=== PATIENT | female | born 1995 | race Two or more races ===

== ENCOUNTER 2021-07-05 09:05 | Outpatient (CLI) | payer OTHER ==
[2021-07-05 09:38] LABS: APPEARANCE,URINE CLEAR (CLEAR); BILIRUBIN,URINE NEGATIVE (NEGATIVE); BLOOD, URINE NEGATIVE (NEGATIVE); COLOR,URINE YELLOW (YELLOW); LEUKOCYTE ESTERASE ,URINE NEGATIVE (NEGATIVE); NITRITE, URINE NEGATIVE (NEGATIVE); UGLUCOSE NEGATIVE (NEGATIVE)
[2021-07-05 10:08] LABS: CHOL/HDL RATIO 3.5 (1-4.5)
== END 2021-07-05 20:20 | disposition home or self-care (01) ==
LOC: MLB 09:05
PROVIDERS: ATTEND Obstetrics & Gynecology
DX: Z13.220 Encounter for screening for lipoid disorders (principal); N20.0 Calculus of kidney
CPT/HCPCS: 36415; 81003; 87086

== ENCOUNTER 2021-12-06 17:29 | Emergency (ER) | payer OTHER ==
[~2021-12-06] VITALS: Ht 160 cm; Wt 77.2 kg
[2021-12-06 18:00] VITALS: BP 108/74
--- NOTE | 2021-12-06 18:58 | NUR ---
Pt ambulated to bed 12 steady/even gait.
--- NOTE | 2021-12-06 19:05 | NUR ---
Dr. Mercer evaluating pt at bedside
--- NOTE | 2021-12-06 19:10 | NUR ---
26 y/o F BIB self from home c/o vaginal spotting x 1 week. Pt 9 wks states "pinkish" vaginal spotting x 1 week without clots; saturating 2-3 pads/day. States intermittent abd cramping across low abd; 4/10, cramping/intermittent, non-radiating pain. Last OB appointment 11/09/[address] Gan; completed U.S showing 5 wks 4 days. Denies nausea, vomiting, diarrhea, dysuria, urinary symptoms. Denies OTC meds today. LMP: 11/20. PMH: kidney stones Meds: prenatals NKDA Sx: denies
--- NOTE | 2021-12-06 19:15 | NUR ---
ASSUME CARE OF PT, REPORT GIVEN BY KRISTOFER RN, PT C/O VAGINAL BLEEDING, SATURATING A FEW PADS A DAY. PT DENIES CP OR SOB. 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 DENIES ABD PAIN. G1PO.
--- NOTE | 2021-12-06 19:23 | NUR ---
Report and transfer of care endorsed to MAIDA Brandt.
[2021-12-06 19:42] LABS: BASOPHILS % (AUTO) 0.5 % (0.0-2.0); EOSINOPHILS # (AUTO) 0.3 K/uL (0-0.4); HEMOGLOBIN 12.7 g/dL (12.0-16.0); MEAN CORPUSCULAR HEMOGLOBIN 30 pg (27-31); MEAN CORPUSCULAR HGB CONC 34 g/dL (33-37); MONOCYTES # (AUTO) 0.7 K/uL (0.8-1.0); MONOCYTES % (AUTO) 8.4 % (1.7-9.3); NEUTROPHILS # (AUTO) 4.7 K/uL (1.8-7.7); NEUTROPHILS % (AUTO) 54.1 % (42.2-75.2); PLATELET COUNT (AUTO) 309 K/uL (140-450); RED CELL DISTRIBUTION WIDTH 13.1 % (11.6-13.7); WHITE BLOOD COUNT (AUTO) 8.7 K/uL (4.8-10.8)
[2021-12-06 20:00] LABS: APPEARANCE,URINE CLEAR (CLEAR); BILIRUBIN,URINE NEGATIVE (NEGATIVE); BLOOD, URINE TRACE-I (NEGATIVE); COLOR,URINE YELLOW (YELLOW); LEUKOCYTE ESTERASE ,URINE NEGATIVE (NEGATIVE); NITRITE, URINE NEGATIVE (NEGATIVE); UGLUCOSE NEGATIVE (NEGATIVE)
[2021-12-06 20:12] LABS: OTHER CASTS, URINE None Seen /LPF (None Seen); RBC,URINE 0-5 /HPF (0-5); WBC,URINE 0-5 /HPF (0-5)
[2021-12-06 20:55] VITALS: BP 110/70
--- NOTE | 2021-12-06 20:55 | NUR ---
Patient discharged with v/s stable. Written and verbal after care instructions given and explained. Patient verbalized understanding. Ambulatory with steady gait. All questions addressed prior to discharge. Advised to follow up with PMD.
== END 2021-12-06 20:55 | disposition home or self-care (01) ==
LOC: MED 17:29
DX: O20.0 Threatened abortion (principal); Z3A.09 9 weeks gestation of pregnancy
CPT/HCPCS: 36415; 76817; 81001; 81025; 84702; 85025; 86900; 86901; 99284; Q0092

== ENCOUNTER 2021-12-09 08:34 | Emergency (ER) | payer OTHER ==
[~2021-12-09] VITALS: Ht 160 cm; Wt 77.2 kg
--- NOTE | 2021-12-09 08:57 | NUR ---
Patient ambulated with steady gait to bed 10.
--- NOTE | 2021-12-09 09:00 | NUR ---
received in [facility] for repeat labs. was here yesterday for vaginal spotting. reports 9 week. . denies dizziness,n,v,fever. aao x4. resp even and nonlabored. vss
[2021-12-09 09:02] VITALS: BP 112/73
[2021-12-09 10:17] LABS: BASOPHILS # (AUTO) 0.1 K/uL (0.00-0.22); BASOPHILS % (AUTO) 0.8 % (0.0-2.0); EOSINOPHILS # (AUTO) 0.2 K/uL (0-0.4); EOSINOPHILS % (AUTO) 2.1 % (0.0-4.0); HEMATOCRIT 37.8 % (36-48); LYMPHOCYTES # (AUTO) 2.1 K/uL (2.5-16.5); LYMPHOCYTES % (AUTO) 26.4 % (20.5-51.1); MEAN CORPUSCULAR HEMOGLOBIN 30 pg (27-31); MEAN CORPUSCULAR HGB CONC 34 g/dL (33-37); MEAN CORPUSCULAR VOLUME 87.6 fL (80-94); MONOCYTES # (AUTO) 0.5 K/uL (0.8-1.0); MONOCYTES % (AUTO) 6.7 % (1.7-9.3); NEUTROPHILS # (AUTO) 5.1 K/uL (1.8-7.7); PLATELET COUNT (AUTO) 290 K/uL (140-450); RED BLOOD CELL COUNT(AUTO) 4.31 MIL/uL (4.20-5.40); RED CELL DISTRIBUTION WIDTH 13.1 % (11.6-13.7)
[2021-12-09 10:20] LABS: APPEARANCE,URINE CLEAR (CLEAR); BILIRUBIN,URINE NEGATIVE (NEGATIVE); BLOOD, URINE NEGATIVE (NEGATIVE); COLOR,URINE YELLOW (YELLOW); LEUKOCYTE ESTERASE ,URINE NEGATIVE (NEGATIVE); NITRITE, URINE NEGATIVE (NEGATIVE); UGLUCOSE NEGATIVE (NEGATIVE)
[2021-12-09 12:07] VITALS: BP 110/70
--- NOTE | 2021-12-09 12:07 | NUR ---
Patient discharged with v/s stable. Written and verbal after care instructions given and explained. Patient verbalized understanding. Ambulatory with steady gait. All questions addressed prior to discharge. Advised to follow up with OBGYN tomorrow as scheduled. Patient instructed to return to ER for any worsening symptoms such as heavy bleeding, severe abd pain.
== END 2021-12-09 12:07 | disposition home or self-care (01) ==
LOC: MED 08:34
DX: O03.9 Complete or unspecified spontaneous abortion without complication (principal)
CPT/HCPCS: 36415; 76817; 81003; 84702; 85025; 99284; Q0092

== ENCOUNTER 2021-12-12 03:18 | Emergency (ER) | payer OTHER ==
[~2021-12-12] VITALS: Ht 160 cm; Wt 73.3 kg
[2021-12-12 03:30] VITALS: BP 126/92
--- NOTE | 2021-12-12 03:33 | NUR ---
pt to bed 3 ambulatory
--- NOTE | 2021-12-12 03:40 | NUR ---
ASSUME CARE OF PT, DR NEVAREZ AT BEDSIDE, PT C/O VAGINAL BLEEDING X 1 DAY, PT STATES SHE IS HAVING A MISCARRIAGE AND SHE JUST WENT TO THE RESTROOM AND A LARGE CLOT WITH TISSUE CAME OUT, ABD CRAMPING PAIN HAS REDUCE SIGNIFICANTLY. PT HAS BEEN CRAMPING FOR A DAY. PT PLACED IN GOWN AND ON MONITOR. .
[2021-12-12] MEDS ORDERED: ACETAMINOPHEN EXTRA STRENGTH 500 MG TAB PO ONE (03:55)
--- NOTE | 2021-12-12 04:00 | NUR ---
PT LAYING IN BED, PT HAS REDUCE, WARM BLANKET PROVIDED.
[2021-12-12 04:39] LABS: BASOPHILS # (AUTO) 0.1 K/uL (0.00-0.22); BASOPHILS % (AUTO) 0.5 % (0.0-2.0); EOSINOPHILS # (AUTO) 0.3 K/uL (0-0.4); EOSINOPHILS % (AUTO) 2.8 % (0.0-4.0); HEMATOCRIT 37.7 % (36-48); HEMOGLOBIN 12.9 g/dL (12.0-16.0); LYMPHOCYTES % (AUTO) 40.8 % (20.5-51.1); MEAN CORPUSCULAR HEMOGLOBIN 30 pg (27-31); MEAN CORPUSCULAR HGB CONC 34 g/dL (33-37); MEAN CORPUSCULAR VOLUME 88.1 fL (80-94); MONOCYTES # (AUTO) 0.6 K/uL (0.8-1.0); MONOCYTES % (AUTO) 5.7 % (1.7-9.3); NEUTROPHILS # (AUTO) 4.9 K/uL (1.8-7.7); NEUTROPHILS % (AUTO) 50.2 % (42.2-75.2); PLATELET COUNT (AUTO) 281 K/uL (140-450); RED BLOOD CELL COUNT(AUTO) 4.27 MIL/uL (4.20-5.40); RED CELL DISTRIBUTION WIDTH 13.1 % (11.6-13.7); WHITE BLOOD COUNT (AUTO) 9.8 K/uL (4.8-10.8)
[2021-12-12] MEDS ORDERED: NACL 0.9% 1,000 ML IV ONE (04:40)
--- NOTE | 2021-12-12 04:43 | NUR ---
PT AMBULATED TO RESTROOM WITH UPRIGHT STEADY GAIT.
--- NOTE | 2021-12-12 05:37 | NUR ---
PT AMBULATED TO RESTROOM WITH UPRIGHT STEADY GAIT. PT DENIES ANY DIZZINESS.
[2021-12-12] MEDS ORDERED: NAPR-54 PO (06:00)
[2021-12-12] MEDS ORDERED: ACET-10509 PO (06:00)
[2021-12-12 06:12] VITALS: BP 108/69
--- NOTE | 2021-12-12 06:20 | NUR ---
Patient discharged with v/s stable. Written and verbal after care instructions given and explained. Patient alert, oriented and verbalized understanding of instructions. Ambulatory with steady gait. All questions addressed prior to discharge. ID band removed. Patient advised to follow up with PMD. Rx SENT TO PHARMACY. Patient educated on indication of medication including possible reaction and side effects. Opportunity to ask questions provided and answered.
== END 2021-12-12 06:20 | disposition home or self-care (01) ==
LOC: MED 03:18
DX: O03.9 Complete or unspecified spontaneous abortion without complication (principal); Z3A.10 10 weeks gestation of pregnancy
CPT/HCPCS: 36415; 81002; 81025; 84702; 85025; 96360; 99283; J7030

== ENCOUNTER 2022-02-02 11:16 | Emergency (ER) | payer OTHER ==
[~2022-02-02] VITALS: Ht 157.5 cm; Wt 63.5 kg
[~2022-02-02 11:16] MED LIST: ACET-10509 PO; NAPR-54 PO
[2022-02-02] MEDS ORDERED: NAPR-54 PO (12:21)
[2022-02-02] MEDS ORDERED: PROM118S5 PO (12:21)
[2022-02-02] MEDS ORDERED: KETOROLAC 30 MG/ML VIAL IM ONE (12:25)
--- NOTE | 2022-02-02 12:40 | NUR ---
Called for pt in lobby, no response.
--- NOTE | 2022-02-02 13:17 | NUR ---
Patient discharged with v/s stable. Written and verbal after care instructions given and explained. Patient alert, oriented and verbalized understanding of instructions. Ambulatory with steady gait. All questions addressed prior to discharge. ID band removed. Patient advised to follow up with PMD. Rx of NAPROXEN, PROMETHAZINE-DM given. Patient educated on indication of medication including possible reaction and side effects. Opportunity to ask questions provided and answered.
== END 2022-02-02 13:17 | disposition home or self-care (01) ==
LOC: MED 11:16
DX: J06.9 Acute upper respiratory infection, unspecified (principal); Z20.822 Contact with and (suspected) exposure to COVID-19
CPT/HCPCS: 87426; 87804; 96372; 99283; J1885

== ENCOUNTER 2022-03-28 17:42 | Outpatient (CLI) | payer OTHER ==
[~2022-03-28 17:42] MED LIST changes: +PROM118S5 PO
== END 2022-03-28 22:36 | disposition home or self-care (01) ==
LOC: MRD 17:42
DX: N28.1 Cyst of kidney, acquired (principal); R16.0 Hepatomegaly, not elsewhere classified; N20.0 Calculus of kidney; R10.9 Unspecified abdominal pain

== ENCOUNTER 2022-04-13 08:59 | Outpatient (CLI) | payer OTHER ==
[2022-04-13 09:38] LABS: EOSINOPHILS # (AUTO) 0.2 K/uL (0-0.4); EOSINOPHILS % (AUTO) 2.4 % (0.0-4.0); HEMATOCRIT 41.1 % (36-48); HEMOGLOBIN 13.7 g/dL (12.0-16.0); LYMPHOCYTES # (AUTO) 2.8 K/uL (2.5-16.5); MONOCYTES # (AUTO) 0.4 K/uL (0.8-1.0); RED CELL DISTRIBUTION WIDTH 13.1 % (11.6-13.7)
[2022-04-13 09:41] LABS: BASOPHILS % (AUTO) 0.4 % (0.0-2.0); LYMPHOCYTES % (AUTO) 35.3 % (20.5-51.1); MEAN CORPUSCULAR HEMOGLOBIN 29 pg (27-31); MEAN CORPUSCULAR HGB CONC 33 g/dL (33-37); MEAN CORPUSCULAR VOLUME 87.5 fL (80-94); MONOCYTES % (AUTO) 5.2 % (1.7-9.3); NEUTROPHILS # (AUTO) 4.5 K/uL (1.8-7.7); NEUTROPHILS % (AUTO) 56.7 % (42.2-75.2); PLATELET COUNT (AUTO) 365 K/uL (140-450)
[2022-04-13 10:23] LABS: ALBUMIN 4.3 g/dL (3.4-5.0); ANION GAP 10.6 (8-16); CHOL/HDL RATIO 3.1 (1-4.5); CREATININE 0.8 mg/dL (0.6-1.3); POTASSIUM 4.6 mmol/L (3.5-5.1); THYROID STIMULATING HORMONE 0.94 uIU/mL (0.34-3.74); TOTAL BILIRUBIN 0.5 mg/dL (0.0-1.0)
[2022-04-14 09:06] LABS: T4 FREE (DIRECT) 0.98 ng/dL (0.82-1.77)
== END 2022-04-13 20:02 | disposition home or self-care (01) ==
LOC: MLB 08:59
DX: Z00.00 Encounter for general adult medical examination without abnormal findings (principal); R10.9 Unspecified abdominal pain; Z13.9 Encounter for screening, unspecified; Z13.1 Encounter for screening for diabetes mellitus
CPT/HCPCS: 36415; 80053; 82306; 83036; 84439; 84443; 85025

== ENCOUNTER 2023-09-28 20:59 | Inpatient (IN) | payer OTHER ==
[2023-09-27 21:42] VITALS: BP 115/73; PULSE 103; RESP 18; TEMP 98
[~2023-09-28] VITALS: Ht 160 cm; Wt 84.4 kg
[~2023-09-28 20:59] MED LIST changes: +NAPR-337 PO; -NAPR-54 PO
[2023-09-28] MEDS ORDERED: MORPHINE SULFATE 10 MG/ML VIAL IVP PRN (21:50)
[2023-09-28] MEDS ORDERED: METHYLERGONOVINE 0.2 MG/ML AMP IM PRN (21:50)
[2023-09-28] MEDS ORDERED: CARBOPROST 250 MCG/ML AMP IM PRN (21:50)
[2023-09-28 22:22] LABS: BASOPHILS % (AUTO) 0.3 % (0.0-2.0); EOSINOPHILS # (AUTO) 0.1 K/uL (0-0.4); HEMATOCRIT 37.3 % (36-48); HEMOGLOBIN 12.8 g/dL (12.0-16.0); LYMPHOCYTES # (AUTO) 2.9 K/uL (2.5-16.5); LYMPHOCYTES % (AUTO) 28.6 % (20.5-51.1); MEAN CORPUSCULAR HEMOGLOBIN 30 pg (27-31); MEAN CORPUSCULAR HGB CONC 34 g/dL (33-37); MEAN CORPUSCULAR VOLUME 86.3 fL (80-94); MONOCYTES # (AUTO) 0.8 K/uL (0.8-1.0); MONOCYTES % (AUTO) 7.9 % (1.7-9.3); NEUTROPHILS # (AUTO) 6.3 K/uL (1.8-7.7); NEUTROPHILS % (AUTO) 62.2 % (42.2-75.2); PLATELET COUNT (AUTO) 292 K/uL (140-450); RED BLOOD CELL COUNT(AUTO) 4.33 MIL/uL (4.20-5.40); RED CELL DISTRIBUTION WIDTH 13.7 % (11.6-13.7); WHITE BLOOD COUNT (AUTO) 10.1 K/uL (4.8-10.8)
[2023-09-28 22:25] LABS: APPEARANCE,URINE CLEAR (CLEAR); BILIRUBIN,URINE NEGATIVE (NEGATIVE); BLOOD, URINE NEGATIVE (NEGATIVE); COLOR,URINE YELLOW (YELLOW); LEUKOCYTE ESTERASE ,URINE 1+ (NEGATIVE); NITRITE, URINE NEGATIVE (NEGATIVE); PROTEIN,URINE NEGATIVE (NEGATIVE); UGLUCOSE NEGATIVE (NEGATIVE); UROBILINOGEN,URINE 0.2 EU/dL (0.2 - 1)
[2023-09-28 22:40] LABS: BACTERIA,URINE >30 (MANY) /HPF (None Seen); MUCUS,URINE 1+ /LPF (None Seen); RBC,URINE 0-5 /HPF (0-5); SQUAMOUS EPITHELIAL CELL,UR 0-3 (FEW) /LPF (0-3 (FEW)); WBC,URINE 0-5 /HPF (0-5)
[2023-09-28 22:43] LABS: INR 0.86 (0.8-1.2); PARTIAL THROMBOPLASTIN TIME 24.6 secs (22-35.6); PROTHROMBIN TIME 9.1 secs (10.8-13.4)
[2023-09-28 22:47] LABS: ALBUMIN 2.8 g/dL (3.4-5.0); CALCIUM 9.6 mg/dL (8.5-10.1); CARBON DIOXIDE 22.7 mmol/L (21-32); CREATININE 0.8 mg/dL (0.6-1.3); POTASSIUM 3.7 mmol/L (3.5-5.1); TOTAL BILIRUBIN 0.2 mg/dL (0.0-1.0); TOTAL PROTEIN, SERUM 6.8 g/dL (6.4-8.2)
[2023-09-28] MEDS: LACTATED RINGERS 1,000 ML IV SCH (22:47)
[2023-09-28] MEDS: OXYTOCIN/0.9 % SODIUM CHLORIDE 500 ML IV SCH (23:28)
[2023-09-28] MEDS ORDERED: AMPICILLIN 2,000 MG VIAL ONE (23:43)
[2023-09-29] MEDS: AMPICILLIN 2,000 MG in NACL 0.9% MINI-BAG PLUS 100 ML IV SCH (00:01)
[2023-09-29] MEDS ORDERED: MISOPROSTOL 25 MCG TAB VG SCH (01:00)
[2023-09-29] MEDS ORDERED: AMPICILLIN 1,000 MG in NACL 0.9% MINI-BAG PLUS 50 ML IV SCH (02:00)
[2023-09-29] MEDS ORDERED: ROPIVACAINE 0.2%/NS PREMIX 200 ML EPI ONE ×2 (02:42→15:21)
[2023-09-29] MEDS: ePHEDrine 50 MG/ML VIAL IV ONE (06:56)
[2023-09-29] MEDS: ONDANSETRON 4 MG/2 ML VIAL IVP PRN (10:10)
[2023-09-29] MEDS ORDERED: ROPIVACAINE 0.2%/NS PREMIX 200 ML EPI SCH (18:55)
[2023-09-29] MEDS ORDERED: LIDOCAINE 1% 500 MG/50 ML VIAL ONE (20:57)
[2023-09-29] MEDS ORDERED: LIDOCAINE MPF 1% 10 MG/ML VIAL INJ ONE (21:20)
[2023-09-29] MEDS ORDERED: MORPHINE SULFATE 4 MG/ML SYR IVP ONE (21:20)
[2023-09-29] MEDS ORDERED: METHYLERGONOVINE 0.2 MG/ML AMP IM PRN (21:40)
[2023-09-29] MEDS ORDERED: HYDROcodone/APAP 5/325 MG 1 TAB TAB PO PRN (21:40)
[2023-09-29] MEDS ORDERED: METHYLERGONOVINE 0.2 MG TAB PO PRN (21:40)
[2023-09-29] MEDS ORDERED: BENZOCAINE/MENTHOL 20%-0.5% 60 GM CAN TP PRN (21:40)
[2023-09-29] MEDS ORDERED: SIMETHICONE 80 MG TAB.CHEW PO PRN (21:40)
[2023-09-29] MEDS ORDERED: IBUPROFEN 600 MG TAB PO PRN (21:40)
[2023-09-29] MEDS ORDERED: MEASLES, MUMPS, AND RUBELLA 1 VIAL SQVAC ONE (21:40)
[2023-09-29] MEDS ORDERED: OXYTOCIN 10 UNITS/ML VIAL IM PRN (21:40)
[2023-09-29] MEDS ORDERED: IBUPROFEN 800 MG TAB PO PRN (21:40)
[2023-09-29] MEDS: MORPHINE SULFATE 4 MG/ML SYR ONE (21:50)
[2023-09-30] MEDS: HYDROcodone/APAP 5/325 MG 1 TAB TAB PO PRN (07:47)
[2023-09-30 08:48] LABS: HEMATOCRIT 35.5 % (36-48); HEMOGLOBIN 11.8 g/dL (12.0-16.0)
[2023-09-30] MEDS: DOCUSATE SODIUM 100 MG GELCAP PO PRN (09:12)
[2023-09-30] MEDS: bisacodyL 5 MG TABEC PO PRN (09:12)
[2023-09-30] MEDS ORDERED: POLYETHYLENE GLYCOL 17 GM/PKT PO SCH (11:00)
[2023-09-30] MEDS: POLYETHYLENE GLYCOL 17 GM/PKT PO SCH (14:33)
[2023-10-01] MEDS: IBUPROFEN 600 MG TAB PO PRN (07:40)
[2023-10-01] MEDS ORDERED: POLYETHYLENE GLYCOL 17 GM/PKT PO SCH (09:00)
== END 2023-10-01 15:15 | disposition home or self-care (01) | DRG 807 ==
LOC: MLD 20:59 → MFCC 09-29 22:45
PROVIDERS: ADMIT Obstetrics & Gynecology; ATTEND Obstetrics & Gynecology
PROC: 10E0XZZ Delivery of Products of Conception, External Approach (ICD-10-PCS; principal; 2023-09-29)
PROC: 0KQM0ZZ Repair Perineum Muscle, Open Approach (ICD-10-PCS; 2023-09-29)
PROC: 3E0R3BZ Introduction of Anesthetic Agent into Spinal Canal, Percutaneous Approach (ICD-10-PCS; 2023-09-29)
PROC: 00HU33Z Insertion of Infusion Device into Spinal Canal, Percutaneous Approach (ICD-10-PCS; 2023-09-29)
PROC: 3E033VJ Introduction of Other Hormone into Peripheral Vein, Percutaneous Approach (ICD-10-PCS; 2023-09-29)
PROC: 3E0234Z Introduction of Serum, Toxoid and Vaccine into Muscle, Percutaneous Approach (ICD-10-PCS; 2023-09-29)
DX: O48.0 Post-term pregnancy (principal); Z37.0 Single live birth; O70.1 Second degree perineal laceration during delivery; Z3A.40 40 weeks gestation of pregnancy
CPT/HCPCS: 36415; 59409; 76815; 80053; 81001; 82948; 85018; 85025; 85610; 85730; 86592; 86886; 86900; 86901; 87086; 87653-90; J0290; J2001; J2270; J2405; J2590; J2795; J7120